=== PATIENT | female | born 1950 | race Caucasian/White ===

== ENCOUNTER 2021-05-14 12:51 | Outpatient (CLI) | payer MEDICARE, OTHER ==
--- NOTE | 2021-05-14 13:19 | XRAY Report ---
PROCEDURE: Chest 2 View X-Ray INDICATIONS: Dyspnea. TECHNIQUE: 2 view(s) of the chest. COMPARISON: None. FINDINGS: SUPPORT DEVICES: None. LUNGS/PLEURA: Prominent interstitial markings with blunting of the costophrenic sulcus. No pneumothorax. MEDIASTINUM: The cardiac silhouette is upper limits of normal. BONES/SOFT TISSUES: No acute abnormality. Diffuse osteopenia. IMPRESSION: 1.Mild pulmonary edema pattern with small pleural effusions. Reviewed by: Gabino Odell MD on 05/14/2021 1:18 PM PST Approved by: Gabino Odell MD on 05/14/2021 1:18 PM [facility] Station ID: [id number]
[2021-05-14 15:36] LABS: BASOPHILS # (AUTO) 0.1 10^3/uL (0.0-0.1); BASOPHILS % (AUTO) 0.8 %; EOSINOPHILS # (AUTO) 0.1 10^3/uL (0.0-0.7); EOSINOPHILS % (AUTO) 1.9 %; HGB - HEMOGLOBIN 13.3 g/dL (12.0-16.0); LYMPHOCYTES # (AUTO) 1.6 10^3/uL (1.5-3.5); LYMPHOCYTES % (AUTO) 20.8 %; MEAN CORPUSCULAR HEMOGLOBIN 31.4 pg (27.0-31.0); MEAN CORPUSCULAR HGB CONC 32.4 g/dL (32.0-36.0); MEAN CORPUSCULAR VOLUME 96.7 fL (81.0-99.0); MEAN PLATELET VOLUME 11.1 fL (7.9-10.8); MONOCYTES # (AUTO) 0.7 10^3/uL (0.0-1.0); MONOCYTES % (AUTO) 9.8 %; NEUTROPHILS % (AUTO) 66.3 %; PLT - PLATELET COUNT 249 10^3/uL (130-450); RED BLOOD COUNT 4.24 10^6/uL (4.20-5.40); WHITE BLOOD COUNT 7.5 x10^3/uL (4.8-10.8)
[2021-05-14 15:57] LABS: ALBUMIN 4.2 g/dL (3.2-5.5); ALBUMIN/GLOBULIN RATIO 1.6 (1.0-2.2); BILIRUBIN,TOTAL 0.9 mg/dL (0.2-1.0); CALCIUM 9.4 mg/dL (8.5-10.3); POTASSIUM 4.2 mmol/L (3.5-5.0); TOTAL PROTEIN 6.9 g/dL (6.7-8.2)
[2021-05-14 16:09] LABS: THYROID STIMULATING HORMONE 2.19 uIU/mL (0.34-5.60)
== END 2021-05-14 12:52 | disposition home or self-care (01) ==
LOC: DI.S 12:51
PROVIDERS: ATTEND Nurse Practitioner Family
DX: J81.1 Chronic pulmonary edema (principal); J90 Pleural effusion, not elsewhere classified; I48.91 Unspecified atrial fibrillation
CPT/HCPCS: 36415; 80053; 84443; 85025

== ENCOUNTER 2021-09-27 19:27 | Outpatient (CLI) | payer MEDICARE, OTHER | END 2021-09-27 19:28 | disposition critical access hospital (66) | LOC: EMS 19:27 | DX: M25.511 Pain in right shoulder (principal); W01.0XXA Fall on same level from slipping, tripping and stumbling without subsequent striking against object, initial encounter; Y92.008 Other place in unspecified non-institutional (private) residence as the place of occurrence of the external cause | CPT/HCPCS: A0425; A0429 ==

== ENCOUNTER 2021-09-27 19:52 | Emergency (ER) | payer MEDICARE, OTHER ==
[2021-09-27] MEDS ORDERED: HYDROmorphone 1 MG/ML CARPUJECT IM STA (20:20)
--- NOTE | 2021-09-27 20:23 | ED Physician Documentation ---
History of Present Illness - Stated complaint Stated Complaint: GLF - Chief complaint Chief Complaint: Trauma Ext - Additonal information Additional information: 71-year-old female presents emergency department for evaluation of acute right s houlder pain. She had walked into her house with wet feet slipped on the floor and reached out to the banister to control her fall she felt a crack and pop in her shoulder. Exquisite pain in the humeral area since. She is anticoagulated on Eliquis for history of A. fib. She is to undergo an ablation this Monday the . She denies striking her head or loss of consciousness Review of Systems Constitutional: denies: Fever, Chills Eyes: reports: Reviewed and negative Ears: reports: Reviewed and negative Throat: reports: Reviewed and negative Cardiac: reports: Reviewed and negative Respiratory: reports: Reviewed and negative GI: reports: Reviewed and negative : reports: Reviewed and negative Skin: denies: Rash, Lesions Musculoskeletal: reports: Extremity pain Neurologic: denies: Syncope, Seizure, Headache, Head injury, LOC Psychiatric: reports: Reviewed and negative PD PAST MEDICAL HISTORY - Present Medications Home Medications: Ambulatory Orders Medication Instructions Recorded Confirmed oxyCODONE [Roxicodone] 5 mg PO TID PRN #20 tablet 09/27/21 - Allergies Allergies/Adverse Reactions: Allergies Allergy/AdvReac Type Severity Reaction Status Date / Time No Known Drug Allergies Allergy Verified 09/27/21 20:03 PD ED PE NORMAL - General General: Alert and oriented X 3, Well developed/nourished. No: No acute distress (In pain) - HEENT HEENT: Atraumatic, Moist mucous membranes - Cardiac Cardiac: No murmur, No gallop, No rub. No: RRR (Irregularly irregular) - Respiratory Respiratory: No respiratory distress, Clear bilaterally - Extremities Extremities: No: No tenderness to palpate (Significant tenderness of the proximal and mid humerus with palpable deformity. 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 Eye Opening: Spontaneous Motor: Obeys Commands Verbal: Oriented GCS Score: 15 Results - Vitals Vitals: Vital Signs - 24 hr 09/27/21 09/27/21 09/27/21 20:03 20:07 22:07 Temperature 36.5 C 36.5 C Heart Rate 98 98 122 H Respiratory 16 16 19 Rate Blood Pressure 145/100 H 145/100 H 155/110 H O2 Saturation 99 98 99 Oxygen O2 Source Room air - EKG (time done) 2007 Rate: Rate (enter#) (86) Rhythm: Atrial fibrillation Bieber: RAD Intervals: No: Prolonged QT QRS: Normal Ischemia: Non specific changes Compare to prior EKG: Old EKG unavailable Computer interpretation: Agree with computer - Rads (name of study) CT head Radiology: Final report received (No acute intracranial abnormality) Right shoulder x-ray Radiology: EMP read indepedently (Comminuted right proximal humeral/neck fracture) PD MEDICAL DECISION MAKING - ED course Complexity details: reviewed results, re-evaluated patient, d/w patient ED course: 71 year old female anticoagulated on eliquis presents with acute shoulder pain after fall. No LOC - CT head negative - x-ray shoulder showed comminuted femoral neck fx. placed in sling - oxycodone for analgesia - f/u with ortho; will need pcp referral - emergent return precautions discussed Departure - Departure Disposition: 01 Home, Self Care Clinical Impression: Closed right humeral fracture Qualifiers: Encounter type: initial encounter Humerus Location: shaft Fracture morphology: comminuted Fracture alignment: nondisplaced Qualified Code(s): S42.354A - Nondisplaced comminuted fracture of shaft of humerus, right arm, initial encounter for closed fracture Condition: Stable Record reviewed to determine appropriate education?: Yes Instructions: ED Fx Upper Ext Follow-Up: Daniel Kaiser MD [Provider Admit Priv/Credential] - Prescriptions: oxyCODONE [Roxicodone] 5 mg PO TID PRN #20 tablet PRN Reason: Pain Comments: Fidelia you were seen today in the emergency department after a fall in your home. You have a history of atrial fibrillation and are anticoagulated on Eliquis. The CT of your head does not show any bruising or bleeding within the brain The x-ray of your shoulder shows a comminuted proximal humeral fracture. Please continue to wear the splint when out of bed. An ice pack to your shoulder will be helpful. Typically fracture such as yours are not managed surgically. However your primary care provider should make a referral for you to orthopedics. They can help monitor healing moving forward. You may need an MRI as there is a good possibility that you also have a rotator cuff injury. I have given you the name of our local orthopedic doctor (Awilda) who can see you in follow-up of your shoulder injury This type of injury is quite uncomfortable. You will need to wear the sling when out of bed. You can take Tylenol for pain. Do not take ibuprofen if you are taking the Eliquis. For severe pain I have sent a prescription for oxycodone to [facility] in [place]. Please discuss this ED visit with your retrieval specialist. I do not anticipate that this shoulder injury will mean that you cannot have the ablation but they should be aware of it before Monday I am prescribing a short course of narcotic pain medication for you. These are potentially dangerous and addictive medications that should be used carefully. These medications may constipate you. Take an waip-nzf-qcofogx stool softener (docusate) twice daily with plenty of water while taking these medications. If you go 24 hours without a bowel movement, take ilfh-ylz-gxuhupj miralax, per package instructions. Do not drink or drive while taking these medications. If you received narcotic or sedating medications while in the emergency department, do not drive for 24 hours. Store this medication in a safe, secure place and out of reach of children. It is a violation of federal law to give or sell this medication to another person or to use in a manner other than prescribed. The ED will not refill narcotic prescriptions, including prescriptions lost or stolen. To dispose of unwanted medications: 1. [facility] at [address] in [place] has a medication drop box. They accept prescription medications (in pill form) Monday through Monday 9:00 a.m. to 5:00 p.m. 2. The [facility] [employer] accepts prescription medications (in pill form only) for disposal year round. Call for more information. 3. Contact the [facility] for the next [facility] sponsored prescription drug collection event. , [phone], or [phone]; Note that many narcotic pain relievers also contain Tylenol/acetaminophen. Please ensure that your total dose of acetaminophen from all sources does not exceed 3 g (3000 mg) per day.
--- NOTE | 2021-09-27 21:22 | CT Report ---
PROCEDURE: HEAD WO INDICATIONS: glf, on blood thinner TECHNIQUE: Noncontrast 4.5 mm thick angled axial sections acquired from the foramen magnum to the vertex. For r adiation dose reduction, the following was used: automated exposure control, adjustment of mA and/or kV according to patient size. COMPARISON: None. FINDINGS: Image quality: Excellent. CSF spaces: Basal cisterns are patent. There is prominence of the extra-axial space along the midlin e in the posterior fossa suggestive of an arachnoid cyst. Ventricles are normal in size and shape. Brain: No intracranial hemorrhage, mass, or mass effect. Evangelista-white matter interface appears preser ashlee. Skull and face: Calvarium and visualized facial bones are intact, without suspicious lesions. Sinuses: Visualized sinuses and mastoids are clear. IMPRESSION: 1. No acute intracranial abnormality. Reviewed by: Hesham Barrios MD on 09/27/2021 9:21 PM PDT Approved by: Hesham Barrios MD on 09/27/2021 9:21 PM PDT Station ID: [id number]
[2021-09-27] MEDS ORDERED: oxyCODONE 5 MG TABLET PO STA (21:59)
[2021-09-27 22:25] VITALS: BP 155/110
--- NOTE | 2021-09-27 23:02 | XRAY Report ---
PROCEDURE: Shoulder 3 View RT INDICATIONS: glf;pain TECHNIQUE: 3 views of the shoulder were acquired. COMPARISON: None. FINDINGS: Bones: There is a comminuted fracture of the right femoral head and neck. There is mild displacement the greater tuberosity component by up to 0.8 cm. No suspicious bony lesions. Visualized ribs appear intact. Soft tissues: No suspicious soft tissue calcifications. IMPRESSION: 1. Comminuted right humeral head and neck fracture. Reviewed by: Heshma Barrios MD on 09/27/2021 11:00 PM PDT Approved by: Hesham Barrios MD on 09/27/2021 11:00 PM PDT Station ID: [id number]
[2021-09-27] MEDS ORDERED: ACETAMINOPHEN 325 MG TABLET PO STA (23:29)
== END 2021-09-27 23:37 | disposition home or self-care (01) ==
LOC: EDUNIT# → ED 19:52
DX: S42.291A Other displaced fracture of upper end of right humerus, initial encounter for closed fracture (principal); W01.0XXA Fall on same level from slipping, tripping and stumbling without subsequent striking against object, initial encounter; Y92.009 Unspecified place in unspecified non-institutional (private) residence as the place of occurrence of the external cause; I48.91 Unspecified atrial fibrillation; Z79.01 Long term (current) use of anticoagulants
CPT/HCPCS: 70450; 73030; 93005; 99283; 99284; A9270; J1170

== ENCOUNTER 2021-10-04 08:00 | Outpatient (CLI) | payer MEDICARE, OTHER ==
--- NOTE | 2021-10-04 13:34 | XRAY Report ---
PROCEDURE: Shoulder 2 View RT INDICATIONS: SHOULDER FX TECHNIQUE: 2 views of the shoulder were acquired. COMPARISON: Right shoulder radiographs 09/27/2021 FINDINGS: Bones: Comminuted fracture of the proximal humeral head and neck is redemonstrated. The alignment williamson s not appear significantly changed when compared to the prior radiographs. No suspicious bony lesions . Visualized ribs appear intact. Soft tissues: No suspicious soft tissue calcifications. IMPRESSION: Comminuted fracture of the proximal humeral head and neck with unchanged alignment. Reviewed by: Luis Rock MD on 10/04/2021 1:32 PM PDT Approved by: Luis Rock MD on 10/04/2021 1:32 PM PDT Station ID: [id number]
== END 2021-10-04 23:59 | disposition home or self-care (01) ==
LOC: DI.WOS 08:00
PROVIDERS: ATTEND Orthopaedic Surgery
DX: S42.231D 3-part fracture of surgical neck of right humerus, subsequent encounter for fracture with routine healing (principal)

== ENCOUNTER 2021-10-11 08:00 | Outpatient (CLI) | payer MEDICARE, OTHER ==
--- NOTE | 2021-10-11 15:32 | XRAY Report ---
PROCEDURE: Shoulder 2 View RT INDICATIONS: SHOUDLER FX TECHNIQUE: 2 views of the shoulder were acquired. COMPARISON: 10/04/2021 FINDINGS: Bones: Again noted is a comminuted, displaced fracture of the humeral neck and head involving the gre ater tuberosity. There is increased fracture lucency consistent with initial stages of healing. No patton spicious bony lesions. Visualized ribs appear intact. Soft tissues: No suspicious soft tissue calcifications. IMPRESSION: Unchanged alignment of humeral head and neck fracture with evidence of very early progre ss in healing. Reviewed by: Cristian Schneider MD on 10/11/2021 3:31 PM PDT Approved by: Cristian Schneider MD on 10/11/2021 3:31 PM PDT Station ID: [id number]
== END 2021-10-11 23:59 | disposition home or self-care (01) ==
LOC: DI.WOS 08:00
PROVIDERS: ATTEND Orthopaedic Surgery
DX: S42.231D 3-part fracture of surgical neck of right humerus, subsequent encounter for fracture with routine healing (principal)

== ENCOUNTER 2021-12-13 08:00 | Outpatient (CLI) | payer MEDICARE, OTHER ==
--- NOTE | 2021-12-13 10:41 | XRAY Report ---
PROCEDURE: Shoulder 2 View RT INDICATIONS: SHOULDER FX TECHNIQUE: 2 views of the shoulder were acquired. COMPARISON: 11/01/2021 FINDINGS: Bones: No change in moderately displaced fracture of the humeral head and neck. No suspicious bony l esions. Visualized ribs appear intact. Soft tissues: No suspicious soft tissue calcifications. IMPRESSION: No change in proximal humeral fracture. Reviewed by: Brodie Hardwick MD on 12/13/2021 10:40 AM PDT Approved by: Brodie Hardwick MD on 12/13/2021 10:40 AM PDT Station ID: [id number]
== END 2021-12-13 08:01 | disposition home or self-care (01) ==
LOC: DI.WOS 08:00
PROVIDERS: ATTEND Orthopaedic Surgery
DX: S42.291D Other displaced fracture of upper end of right humerus, subsequent encounter for fracture with routine healing (principal)

== ENCOUNTER 2022-01-27 09:05 | Outpatient (CLI) | payer MEDICARE, OTHER ==
--- NOTE | 2022-01-27 16:43 | Mammography Report ---
BILATERAL DIGITAL DIAGNOSTIC MAMMOGRAM 3D/2D WITH AUGMENTATION: 01/27/2022 CLINICAL: Personal history of left breast cancer. Due for bilateral. Comparison is made to exams dated: 01/05/2021 mammogram, 04/09/2020 mammogram, 03/10/2020 mammogram, and [place] [facility] [place] breasts are heterogeneously dense, which may obscure small masses (category c / 51-75% glandular tissue). Bilateral subpectoral silicone implants are present. There are surgical clips in the left breast in the upper outer quadrant corresponding to prior lumpec carson. There is a possible developing 1.3 cm high density asymmetry with an indistinct margin in the left br east at 12 o'clock anterior depth. This is not seen in additional views. No other significant masses, calcifications, or other findings are seen in either breast. IMPRESSION: INCOMPLETE: NEEDS ADDITIONAL IMAGING EVALUATION The possible developing 1.3 cm high density asymmetry in the left breast most likely is fibroglandula r tissue but remains indeterminate. An ultrasound is recommended. This was performed immediately fol lowing this exam. Mammograms are otherwise stable. This exam was interpreted at Station ID: [id number]. NOTE: For mammograms, a report in lay terms will be sent to the patient. Approximately 15% of breast malignancies will not be visualized mammographically. In the management of a palpable breast mass, a negative mammogram must not discourage biopsy of a clinically suspicious lesion. Electronically Signed By: Andressa truong/:01/27/2022 11:43:49 ACR BI-RADS Category 0: Incomplete 3340F PARENCHYMAL PATTERN: (D) - The breast(s) demonstrate(s) heterogeneously dense fibroglandular varsha pemberton. BI-RADS CATEGORY: (0) - 0 Ultrasound [id number] Immediate follow-up LATERALITY: (B)
--- NOTE | 2022-01-27 16:43 | Ultrasound Report ---
LIMITED ULTRASOUND OF LEFT BREAST: 01/27/2022 CLINICAL: Patient returns today to evaluate a focal asymmetry in the left breast. Patient returns to ay to evaluate a focal asymmetry in the left breast. Comparison is made to exams dated: 01/27/2022 mammogram - [facility], 01/05/2021 m ammogram, 04/09/2020 mammogram, 03/10/2020 mammogram, and 08/27/2018 mammogram - [facility]. Color flow and real-time ultrasound of the left breast 6 o'clock, 12 o'clock, and retroareolar regio ns were performed. Evangelista scale images of the real-time examination were reviewed. No significant abnormalities were seen sonographically in the left breast. Specifically, no finding to correspond to the patient's possible left breast asymmetry in the anterior aspect. Incidental note made of a few anechoic mildly prominent ducts. These may have caused summation artifact on the mammo gram. IMPRESSION: PROBABLY BENIGN There is no sonographic correlate to the patient's possible mammographic abnormality and no evidence of malignancy. A follow-up left mammogram in 6 months is recommended to demonstrate stability. Findings and recommendations were conveyed to the patient at time of exam. This exam was interpreted at Station ID: [id number]. Electronically Signed By: Andressa truong/:01/27/2022 11:47:42 Ultrasound BI-RADS: 3 Probably benign BI-RADS CATEGORY: (3) - 3 Mammogram [id number] 6 month follow-up LATERALITY: (L)
== END 2022-01-27 09:06 | disposition home or self-care (01) ==
LOC: DI 09:05
PROVIDERS: ATTEND Internal Medicine Hematology & Oncology
DX: R92.8 Other abnormal and inconclusive findings on diagnostic imaging of breast (principal); Z85.3 Personal history of malignant neoplasm of breast; Z98.82 Breast implant status

== ENCOUNTER 2022-01-28 12:53 | Outpatient (CLI) | payer MEDICARE, OTHER ==
[2022-01-28 14:43] LABS: BASOPHILS # (AUTO) 0.1 10^3/uL (0.0-0.1); BASOPHILS % (AUTO) 0.7 %; EOSINOPHILS # (AUTO) 0.1 10^3/uL (0.0-0.7); EOSINOPHILS % (AUTO) 1.8 %; HCT - HEMATOCRIT 39.9 % (37.0-47.0); HGB - HEMOGLOBIN 12.8 g/dL (12.0-16.0); LYMPHOCYTES # (AUTO) 1.8 10^3/uL (1.5-3.5); LYMPHOCYTES % (AUTO) 26.2 %; MEAN CORPUSCULAR HEMOGLOBIN 30.9 pg (27.0-31.0); MEAN CORPUSCULAR HGB CONC 32.1 g/dL (32.0-36.0); MEAN CORPUSCULAR VOLUME 96.4 fL (81.0-99.0); MONOCYTES # (AUTO) 0.6 10^3/uL (0.0-1.0); MONOCYTES % (AUTO) 9.4 %; NEUTROPHILS # (AUTO) 4.2 10^3/uL (1.5-6.6); NEUTROPHILS % (AUTO) 61.6 %; PLT - PLATELET COUNT 207 10^3/uL (130-450); RED BLOOD COUNT 4.14 10^6/uL (4.20-5.40); RED CELL DISTRIBUTION WIDTH 14.4 % (12.0-15.0); WHITE BLOOD COUNT 6.8 x10^3/uL (4.8-10.8)
[2022-01-28 14:49] LABS: INR 1.6 (0.8-1.2)
[2022-01-28 15:23] LABS: CALCIUM 9.8 mg/dL (8.5-10.3); POTASSIUM 4.3 mmol/L (3.5-5.0)
== END 2022-01-28 12:54 | disposition home or self-care (01) ==
LOC: LAB.S 12:53
PROVIDERS: ATTEND Internal Medicine
DX: I48.19 Other persistent atrial fibrillation (principal)
CPT/HCPCS: 36415; 80048; 85025; 85610

== ENCOUNTER 2022-10-10 09:58 | Outpatient (CLI) | payer MEDICARE, OTHER ==
--- NOTE | 2022-10-11 12:09 | Mammography Report ---
UNILATERAL LEFT DIGITAL DIAGNOSTIC MAMMOGRAM 3D/2D WITH AUGMENTATION: 10/10/2022 CLINICAL: Patient returns for a 6 month follow up of the left breast cancer. Comparison is made to exams dated: 01/27/2022 mammogram - [facility], 01/05/2021 m ammogram, 04/09/2020 mammogram, 03/10/2020 mammogram, and 08/27/2018 mammogram - [facility]. The left breast is heterogeneously dense, which may obscure small masses (category c / 51-75% glandul ar tissue). There are surgical clips in the left breast in the upper outer quadrant. Left subpectoral silicone i mplant is present. There is a possible stable 1.3 cm asymmetry in the left breast at 12 o'clock anterior depth. This wa s not seen on the prior ultrasound. No other significant masses or calcifications are seen in the breast. IMPRESSION: PROBABLY BENIGN The possible stable 1.3 cm asymmetry in the left breast is probably benign. A follow-up mammogram in 6 months is recommended to demonstrate stability. This exam was interpreted at Station ID: [id number]. NOTE: For mammograms, a report in lay terms will be sent to the patient. Approximately 15% of breast malignancies will not be visualized mammographically. In the management of a palpable breast mass, a negative mammogram must not discourage biopsy of a clinically suspicious lesion. Electronically Signed By: Neville Yodre M.D. lc/:10/10/2022 11:43:18 ACR BI-RADS Category 3: Probably benign 3343F PARENCHYMAL PATTERN: (D) - The breast(s) demonstrate(s) heterogeneously dense fibroglandular varsha pemberton. BI-RADS CATEGORY: (3) - 3 Mammogram [id number] 6 month follow-up LATERALITY: (B)
== END 2022-10-10 09:59 | disposition home or self-care (01) ==
LOC: DI 09:58
PROVIDERS: ATTEND Internal Medicine Hematology & Oncology
DX: C50.412 Malignant neoplasm of upper-outer quadrant of left female breast (principal)

== ENCOUNTER 2023-04-14 08:35 | Outpatient (CLI) | payer MEDICARE, OTHER ==
--- NOTE | 2023-04-17 09:24 | Mammography Report ---
BILATERAL DIGITAL DIAGNOSTIC MAMMOGRAM 3D/2D WITH AUGMENTATION: 04/14/2023 CLINICAL: Patient returns for a 6 month follow up of the left breast, due for bilateral exam. Comparison is made to exams dated: 10/10/2022 mammogram, 01/27/2022 ultrasound, and 01/27/2022 mammog [facility]. Both breasts are heterogeneously dense, which may obscure small masses (category c / 51-75% glandular tissue). There are surgical clips in the left breast in the upper outer quadrant. Left subpectoral silicone i mplant is present. Redemonstration of previously described possible stable 1.3 cm asymmetry in the left breast at 12 o'c lock anterior depth. This was not seen on the prior ultrasound. No other significant masses, calcifications, or other findings are seen in either breast. IMPRESSION: PROBABLY BENIGN The possible stable 1.3 cm asymmetry in the left breast is probably benign. A follow-up bilateral mammogram and possible left ultrasound in 12 months is recommended to document long term care pharmacist stability. Findings and recommendations were conveyed to the patient during today's evaluation. This exam was interpreted at Station ID: [id number]. NOTE: For mammograms, a report in lay terms will be sent to the patient. Approximately 15% of breast malignancies will not be visualized mammographically. In the management of a palpable breast mass, a negative mammogram must not discourage biopsy of a clinically suspicious lesion. Electronically Signed By: Heber Wilson M.D. aty/:04/14/2023 09:51:22 ACR BI-RADS Category 3: Probably benign 3343F PARENCHYMAL PATTERN: (D) - The breast(s) demonstrate(s) heterogeneously dense fibroglandular varsha pemberton. BI-RADS CATEGORY: (3) - 3 Mammo and [place] [id number] 12 month follow-up LATERALITY: (B)
== END 2023-04-14 08:36 | disposition home or self-care (01) ==
LOC: DI 08:35
PROVIDERS: ATTEND Physician Assistant
DX: R92.8 Other abnormal and inconclusive findings on diagnostic imaging of breast (principal); R92.333 Mammographic heterogeneous density, bilateral breasts

== ENCOUNTER 2023-10-30 13:39 | Outpatient (CLI) | payer MEDICARE, OTHER ==
[2023-10-30 13:59] LABS: INR 1.6 (0.8-1.2); PT - PROTHROMBIN TIME 16.9 secs (9.9-12.6)
[2023-10-30 14:09] LABS: CALCIUM 10.2 mg/dL (8.5-10.3); CREATININE 0.9 mg/dL (0.6-1.3); POTASSIUM 4.4 mmol/L (3.5-4.5)
== END 2023-10-30 13:40 | disposition home or self-care (01) ==
LOC: LAB 13:39
DX: Z01.818 Encounter for other preprocedural examination (principal); I48.91 Unspecified atrial fibrillation; I48.92 Unspecified atrial flutter
CPT/HCPCS: 36415; 80048; 85610; 93005

== ENCOUNTER 2023-11-10 13:50 | Outpatient (CLI) | payer MEDICARE, OTHER ==
[~2023-11-10 13:50] MED LIST: GADOTERATE MEGLUMINE 7.5 MMOL/15 ML VIAL ONE
[2023-11-10] MEDS: GADOTERATE MEGLUMINE 7.5 MMOL/15 ML VIAL IVP ONE (14:47)
--- NOTE | 2023-11-13 08:50 | MRI Report ---
BREAST MRI OF BOTH BREASTS: 11/10/2023 CLINICAL: Personal history of breast cancer. TECHNIQUE: The patient was placed prone in a dedicated breast imaging coil. Precontrast axial STIR and 3D FLASH without fat saturation sequences were obtained. Both before and after bolus injection of contrast, sequential 1-minute axial 3D FLASH with fat saturation sequences for 3 time points, with subtraction images and maximum intensity projections (MIP's) generated. Delayed sagittal FLASH images with fat s aturation were also obtained. Silicone selective images were also acquired to evaluate bilateral implant integrity. Computer-aided detection, including computer algorithm analysis of MRI image data for lesion detectio n and characterization, pharmacokinetic analysis, with further physician review for interpretation, w as performed. COMPARISON: Outside pre-surgery MRI dated 05/21/2020. Mammograms dated 10/10/2022 and 04/14/2023. Image quality: Diagnostic. There is mild background parenchymal enhancement. There is heterogeneously dense fibroglandular tiss ue in the bilateral breast. Right breast: Retropectoral silicone breast implant appears intact. No abnormal capsular enhancemen t. No abnormal pericapsular fluid. No suspicious mass, architectural distortion, or suspicious non- mass enhancement. No skin abnormalities. Nonenhancing T1 hyperintensity within the central ducts co mpatible with proteinaceous fluid within the subareolar ducts. No axillary or internal mammary chain adenopathy. No nipple abnormality seen. Left breast: Retropectoral silicone breast implant appears intact. There are post surgical changes of partial mastectomy involving the middle-posterior depth of the upper, outer quadrant. Multiple patton sceptibility artifacts compatible with surgical clips. Postsurgical scarring appears to extend to th e pectoralis muscle without evidence for abnormal enhancement. No suspicious skin abnormalities. No nenhancing T1 hyperintensity within the central ducts compatible with proteinaceous fluid. No nipple abnormalities. No suspicious mass or non-mass enhancement. No axillary or internal mammary chain a denopathy. No abnormalities identified to correlate with previously described possible asymmetry in the left breast 12 o'clock position anterior depth. Miscellaneous: Visualized portions of the upper abdomen and chest appear unremarkable. IMPRESSION: BENIGN 1. Postsurgical changes of interval partial mastectomy of the upper, outer quadrant of the left breas t with expected postsurgical changes. No suspicious enhancement at the surgical site. No axillary o r internal mammary chain adenopathy. 2. No MRI evidence for malignancy in the bilateral breast. 3. Bilateral retropectoral silicone breast implants appear intact. 4. Recommend continued annual screening mammography and consideration for continued adjunct annual sc reening breast MRI. COMMENT: The imaging literature indicates that a negative contrast breast MRI examination has a high sensitivity and a moderate specificity for detecting and excluding invasive carcinomas to a detection threshold of 3-5 mm; nonetheless, appropriate clinical and mammographic follow-up are recommended. MRI is not sensitive for detecting DCIS (ductal carcinoma in situ) and may not detect large invasive neoplasms that show only minimal enhancement such as mucinous carcinoma. If there are suspicious sarbjit cifications or clinically worrisome palpable masses, then biopsy should still be considered. Invasiv e neoplasms can be hidden by co-existent and benign enhancement caused by mastitis, hormone therapy e ffects, radiation therapy, , and recent biopsy or surgery. False positive examinations can occur in a number of circumstances, including breasts that have recently been subject to invasive pro cedures and those that contain atypical ductal hyperplasia, hormonally stimulated glandular tissue, f at necrosis, or radial scars. Future imaging is recommended as follows: 04/14/2024 mammogram and an ultrasound. This exam was interpreted at Station ID: [id number]. Electronically Signed By: Heber Wilson M.D. aty/:11/10/2023 19:05:44 ACR BI-RADS Category 2: Benign Finding(s) 3342F BI-RADS CATEGORY: (2) - 2 Unspecified - other recall n/a LATERALITY: (B)
== END 2023-11-10 13:51 | disposition home or self-care (01) ==
LOC: DI 13:50
PROVIDERS: ATTEND Internal Medicine Hematology & Oncology
DX: C50.912 Malignant neoplasm of unspecified site of left female breast (principal); Z98.82 Breast implant status